=== PATIENT | female | born 1995 | race Caucasian/White ===

== ENCOUNTER 2025-01-15 03:00 | Inpatient (IN) | payer OTHER ==
[2025-01-15] MEDS: ELECTROLYTE-148 SOLN 1,000 ML IV SCH (04:00)
[2025-01-15 04:18] LABS: ABSOLUTE IMMATURE GRANULOCYTES 0.06 x10^3/uL (0.0-0.031); BASOPHILS # 0.02 x10^3/uL (0.01-0.08); EOSINOPHIL % 0.2 % (0.7-5.8); EOSINOPHILS # 0.02 x10^3/uL (0.04-0.36); HEMATOCRIT 40.3 % (34.1-44.9); HEMOGLOBIN 13.6 g/dL (11.2-15.7); MCHC 33.7 g/dl (32.2-35.5); MEAN CELL VOLUME 95.7 fl (79.4-94.8); MEAN PLT VOLUME 11.1 fl (9.4-12.3); MONOCYTE # 0.81 x10^3/uL (0.24-0.86); MONOCYTE % 6.9 % (4.7-12.5); PLATELET COUNT # 209 x10^3/uL (182-369); RDW 12.8 % (12.1-16.5)
[2025-01-15 04:27] LABS: INR 0.88 (0.83-1.09); PROTHROMBIN TIME (PATIENT) 9.6 SEC (9.7-13.0)
[2025-01-15 04:30] LABS: ACTIVATED PTT 28.7 SECONDS (25.2-36.5)
[2025-01-15 04:31] VITALS: BMI 24.6
[2025-01-15 04:38] LABS: CALCIUM 9.6 mg/dL (8.5-10.1)
[2025-01-15 04:42] LABS: CREATININE 0.8 mg/dL (0.55-1.3)
[2025-01-15] MEDS ORDERED: FENTANYL/BUPIVACAINE/NS/PF - PCEA - 50 ML DISP.SYRIN EP ONE (05:43)
[2025-01-15 06:00] LABS: COCAINE, UR NEGATIVE (NEGATIVE); URINE AMPHETAMINES NEGATIVE (NEGATIVE); URINE BARBITURATES NEGATIVE (NEGATIVE); URINE BENZODIAZEPINES NEGATIVE (NEGATIVE)
[2025-01-15 06:02] LABS: METHADONE, UR NEGATIVE (NEGATIVE); OPIATES, URI NEGATIVE (NEGATIVE); PHENCYCLIDINE,URINE NEGATIVE (NEGATIVE)
[2025-01-15] MEDS: FENTANYL/BUPIVACAINE/NS/PF - PCEA - 50 ML DISP.SYRIN EP SCH (06:20)
[2025-01-15] MEDS ORDERED: NALOXONE HCL 0.4 MG/ML VIAL IVPUSH PRN (07:03)
[2025-01-15] MEDS ORDERED: LIDOCAINE HCL 1% PRESERVATIVE FREE - 30ML VIAL ONE (07:16)
[2025-01-15] MEDS ORDERED: OXYTOCIN 20 UNITS in 0.9% NS 20 UNIT/1,000 ML INFUS.BAG IV ONE (07:16)
[2025-01-15] MEDS: OXYTOCIN 30 UNITS in 0.9% NS 30 UNIT/500 ML INFUS.BAG IVPB SCH (09:05)
[2025-01-15] MEDS ORDERED: OXYTOCIN 30 UNITS in 0.9% NS 30 UNIT/500 ML INFUS.BAG IVPB ONE (09:10)
[2025-01-15] MEDS: OXYTOCIN 20 UNITS in 0.9% NS 20 UNIT/1,000 ML INFUS.BAG IV SCH (10:40)
[2025-01-15] MEDS ORDERED: WITCH HAZEL 50% (TUCKS) 40 PAD/JAR PAD TP PRN (10:53)
[2025-01-15] MEDS ORDERED: oxyCODONE HCL 5 MG TABLET PO PRN (10:53)
[2025-01-15] MEDS ORDERED: BENZOCAINE 28 GM HEMORRHOIDAL OINTMENT TP PRN (10:53)
[2025-01-15] MEDS ORDERED: BISACODYL 10 MG SUPP.RECT RC PRN (10:53)
[2025-01-15] MEDS ORDERED: METHYLERGONOVINE MALEATE 0.2 MG/1 ML AMP IM PRN (10:53)
[2025-01-15] MEDS ORDERED: IBUPROFEN 600 MG TABLET (FP) PO ONE (11:45)
[2025-01-15] MEDS: IBUPROFEN 600 MG TABLET (FP) PO PRN (11:51)
[2025-01-15 12:24] LABS: HEPATITIS B SURFACE AG MATERN NON-REACTIVE (NONREACTIVE)
[2025-01-15 12:32] VITALS: RESP 18
[2025-01-15 12:37] LABS: POC NITRAZINE POS
[2025-01-15 12:53] LABS: HCV DIAGNOSTIC IN-HOUSE W/RFLX NON-REACTIVE (NONREACTIVE)
[2025-01-15] MEDS: ACETAMINOPHEN 325 MG TABLET (FP) PO PRN (13:19)
[2025-01-15] MEDS: BENZOCAINE 20% 57 GM BOTTLE TP PRN (13:20)
[2025-01-16 07:20] LABS: ABSOLUTE IMMATURE GRANULOCYTES 0.09 x10^3/uL (0.0-0.031); BASOPHILS # 0.02 x10^3/uL (0.01-0.08); EOSINOPHIL % 0.2 % (0.7-5.8); EOSINOPHILS # 0.02 x10^3/uL (0.04-0.36); HEMATOCRIT 30.3 % (34.1-44.9); HEMOGLOBIN 10.1 g/dL (11.2-15.7); MCHC 33.3 g/dl (32.2-35.5); MEAN CELL VOLUME 96.5 fl (79.4-94.8); MEAN PLT VOLUME 10.8 fl (9.4-12.3); MONOCYTE # 0.71 x10^3/uL (0.24-0.86); MONOCYTE % 5.8 % (4.7-12.5); PLATELET COUNT # 154 x10^3/uL (182-369); RDW 13.2 % (12.1-16.5)
[2025-01-16 20:32] VITALS: BP 101/73; PULSE 112; TEMP 99
[2025-01-16] MEDS: SENNOSIDES/DOCUSATE COMBO (SENNA PLUS) TABLET (UD) PO PRN (23:00)
[2025-01-17] MEDS: MEASLES,MUMPS&RUBELLA VACC/PF 0.5 ML VIAL SQ ONE (09:57)
== END 2025-01-17 12:10 | disposition home or self-care (01) | DRG 560 ==
LOC: JDEL 03:00 → JLDR 03:20 → J3W 13:05
PROVIDERS: ADMIT Family Medicine; ATTEND Family Medicine
PROC: 10E0XZZ Delivery of Products of Conception, External Approach (ICD-10-PCS; principal; 2025-01-17)
PROC: 0KQM0ZZ Repair Perineum Muscle, Open Approach (ICD-10-PCS; 2025-01-17)
DX: O70.1 Second degree perineal laceration during delivery (principal); O69.1XX0 Labor and delivery complicated by cord around neck, with compression, not applicable or unspecified; Z3A.39 39 weeks gestation of pregnancy; Z37.0 Single live birth
CPT/HCPCS: 36415; 59025; 59409; 80048; 80307; 83986-QW; 85025; 85610; 85730; 86780; 86803; 86850; 86900; 86901; 87340